=== PATIENT | male | born 1990 | race American Indian/Alaskan Native ===

== ENCOUNTER 2022-01-23 00:29 | Emergency (ER) | payer OTHER ==
[2022-01-23] MEDS ORDERED: LORazepam 2 MG/ML VIAL ONE (00:34)
[2022-01-23] MEDS ORDERED: MORPHINE 4 MG/1 ML INJ ONE ×2 (00:34→03:05)
[2022-01-23] MEDS: MORPHINE 4 MG/1 ML INJ IV ONE (00:39)
[2022-01-23] MEDS: LORazepam 2 MG/ML VIAL IV ONE (00:39)
[2022-01-23 01:05] LABS: Mean Corpuscular HGB Conc 34 % (32-34); Mean Corpuscular Volume 79 fl (84-94); Platelet Count 358 K/mm3 (140-440); Red Blood Count 4.56 M/mm3 (3.65-5.03); Red Cell Distribution Width 17.5 % (13.2-15.2)
[2022-01-23] MEDS: SODIUM CHLORIDE 0.9% 1000 ML 1,000 ML IV ONE (01:06)
[2022-01-23] MEDS: ceFAZolin/NS 1 GM/50 ML 1 GM/50 ML BAG IV ONE (01:06)
[2022-01-23] MEDS: TETANUS,DIPH,PERTUSS(ACELL) VACCINE 0.5 ML SYRINGE IM ONE (01:10)
[2022-01-23 01:15] LABS: INR 1.1 (0.87-1.13)
[2022-01-23 01:27] LABS: Alanine Aminotransferase 7 units/L (7-56); BUN/Creatinine Ratio 14; Blood Urea Nitrogen 14 mg/dL (9-20); Calcium 8.5 mg/dL (8.4-10.2); Hemolysis Index 32
--- NOTE | 2022-01-23 01:30 | XRay Report ---
XR forearm RT INDICATION / CLINICAL INFORMATION: lac. COMPARISON: None available. FINDINGS: There is evidence of soft tissue injury of the distal forearm. On frontal view, there is a 6 mm radio paque density projecting in the radial ulnar space with additional 9 mm radiopaque density seen sligh tly proximally. On oblique view, there is a 3 mm radiopaque foreign body in the volar soft tissues of the distal forearm, which could reflect more distal radiodensity seen on frontal view. No acute frac ture alignment. IMPRESSION: Soft tissue injury of the distal forearm with 2 radiopaque densities in the distal forearm, as above, concerning for retained foreign bodies. Signer Name: Lester Espana MD Signed: 01/23/2022 1:26 AM Workstation Name: [id number]
[2022-01-23 02:28] LABS: Basophils % (Manual) 0 % (0.0-1.8); Total Cells Counted 100
[2022-01-23 02:29] LABS: Anisocytosis 1+; Platelet Estimate Consistent w Auto
[2022-01-23] MEDS: NEOMY 3.5 MG/BACIT 400 UNITS/POLY B 5000 UNITS/GM OINT PACKET TP ONE (02:53)
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
[2022-01-23 04:34] VITALS: BP 146/105
== END 2022-01-23 04:34 ==
LOC: ED 00:29 → EEVIPCON 00:29 → ED 04:34
DX: S51.811A Laceration without foreign body of right forearm, initial encounter (principal); W25.XXXA Contact with sharp glass, initial encounter; Y93.89 Activity, other specified; Y92.89 Other specified places as the place of occurrence of the external cause; Y99.8 Other external cause status
CPT/HCPCS: 12001; 36415; 73090; 73206; 80053; 82550; 84484; 85007; 85025; 85610; 87806; 90471; 90715; 96365; 96375; 99285; J0690; J2060; J2270; J7030; Q9967; 80320; 96361; 99284; G0480

== ENCOUNTER 2022-01-27 20:07 | Emergency (ER) | payer OTHER ==
[2022-01-27 20:55] VITALS: BP 151/95
[2022-01-27] MEDS ORDERED: ASPIRIN 81 MG TAB CHEW PO ONE (21:16)
[2022-01-27] MEDS ORDERED: ALUM-MAG HYDROXIDE-SIMETHICONE 200-200-20MG/5ML ORAL LIQD 30 ML PO ONE (21:17)
[2022-01-27 21:54] LABS: Basophils # (Auto) 0.1 K/mm3 (0.0-0.1); Basophils % (Auto) 1.4 % (0.0-1.8); Eosinophils # (Auto) 0.2 K/mm3 (0.0-0.4); Eosinophils % (Auto) 2.1 % (0.0-4.3); Hematocrit 33.9 % (35.5-45.6); Hemoglobin 11.5 gm/dl (11.8-15.2); Lymphocytes # (Auto) 3.3 K/mm3 (1.2-5.4); Lymphocytes % (Auto) 44.6 % (13.4-35.0); Mean Corpuscular HGB Conc 34 % (32-34); Mean Corpuscular Volume 78 fl (84-94); Monocytes # (Auto) 0.8 K/mm3 (0.0-0.8); Monocytes % (Auto) 10.2 % (0.0-7.3); Platelet Count 409 K/mm3 (140-440); Red Blood Count 4.36 M/mm3 (3.65-5.03)
[2022-01-27 22:03] LABS: INR 1.04 (0.87-1.13)
--- NOTE | 2022-01-27 22:08 | XRay Report ---
CHEST 1 VIEW 01/27/2022 9:00 PM INDICATION / CLINICAL INFORMATION: Chest Pain. COMPARISON: None available. FINDINGS: SUPPORT DEVICES: None. HEART / MEDIASTINUM: Upper limits normal heart size. LUNGS / PLEURA: No significant pulmonary or pleural abnormality. No pneumothorax. ADDITIONAL FINDINGS: No significant additional findings. IMPRESSION: 1. Upper limits normal heart size. No acute abnormality. Signer Name: Cal Canseco DO Signed: 01/27/2022 10:04 PM Workstation Name: [id number]
[2022-01-27 22:16] LABS: Alanine Aminotransferase 5 units/L (7-56); Albumin 3.7 g/dL (3.9-5); BUN/Creatinine Ratio 19; Blood Urea Nitrogen 15 mg/dL (9-20); Calcium 9.7 mg/dL (8.4-10.2); Hemolysis Index 19
[2022-01-27] MEDS ORDERED: ALBUTEROL 2.5 MG/3 ML NEBU IH ONE (22:21)
[2022-01-27] MEDS ORDERED: IPRATROPIUM 0.02% NEBU 2.5 ML IH ONE (22:21)
[2022-01-27] MEDS ORDERED: FUROSEMIDE 40 MG/4 ML INJ IV ONE (22:21)
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
== END 2022-01-28 00:11 ==
LOC: EEVIPCON 20:07 → ED 20:07
DX: R06.02 Shortness of breath (principal); I11.0 Hypertensive heart disease with heart failure; I50.9 Heart failure, unspecified
CPT/HCPCS: 36415; 71045; 80053; 83880; 84484; 85025; 85610; 94640; 99284; J1940; 94644